=== PATIENT | female | born 2000 | race Two or more races ===

== ENCOUNTER 2019-04-27 14:42 | Emergency (ER) | payer BC, OTHER ==
[~2019-04-27] VITALS: Ht 167.6 cm; Wt 87.1 kg
--- NOTE | 2019-04-27 14:50 | NUR ---
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 PTAAOX4,VSS, NO ACUTE DISRTESS NOTED, AMBULATORY W STEADY GAIT. PT CONNECTED TO THE MONITOR.
[2019-04-27] MEDS ORDERED: LORAZEPAM 0.5 MG TABLET ONE ×2 (15:08→15:30)
[2019-04-27] MEDS ORDERED: LORAZEPAM 1 MG TABLET PO ONE ×2 (15:30)
[2019-04-27] MEDS ORDERED: KETOROLAC TROMETHAMINE INJ 60 MG/2 ML VIAL IM ONE ×2 (16:15→16:30)
--- NOTE | 2019-04-27 16:42 | NUR ---
Patient discharged to home in stable condition. Written and verbal after care instructions given. Patient verbalizes understanding of instruction.
[2019-04-27 16:43] VITALS: BP 120/32
== END 2019-04-27 16:44 | disposition home or self-care (01) ==
LOC: EDBD 14:45 → ER 14:45
DX: F41.0 Panic disorder [episodic paroxysmal anxiety] (principal)
CPT/HCPCS: 96372; 99283; J1885